=== PATIENT | female | born 1990 | race American Indian/Alaskan Native ===

== ENCOUNTER 2022-04-11 20:58 | Emergency (ER) | payer SELFPAY ==
[2022-04-11 21:11] VITALS: BP 137/73
[2022-04-11 21:55] LABS: Hematocrit 39.9 % (30.3-42.9); Hemoglobin 13.2 gm/dl (10.1-14.3); Mean Corpuscular HGB Conc 33 % (30-34); Mean Corpuscular Volume 98 fl (79-97); Platelet Count 293 K/mm3 (140-440); Red Blood Count 4.07 M/mm3 (3.65-5.03); Red Cell Distribution Width 13.6 % (13.2-15.2)
[2022-04-11] MEDS ORDERED: METOCLOPRAMIDE 10 MG/2 ML INJ IV ONE (22:01)
[2022-04-11] MEDS ORDERED: diphenhydrAMINE 50 MG/ML VIAL IV ONE (22:01)
[2022-04-11] MEDS ORDERED: MORPHINE 4 MG/1 ML INJ IV ONE (22:01)
[2022-04-11] MEDS ORDERED: FAMOTIDINE 20 MG/2 ML INJ IV ONE (22:01)
[2022-04-11 22:16] LABS: Alanine Aminotransferase 12 units/L (7-56); Albumin 4.8 g/dL (3.9-5); BUN/Creatinine Ratio 16; Blood Urea Nitrogen 13 mg/dL (7-17); Calcium 10.2 mg/dL (8.4-10.2); Hemolysis Index 42
[2022-04-11 22:40] LABS: Basophils % (Manual) 0 % (0.0-1.8); Eosinophils % (Manual) 0 % (0.0-4.3); Platelet Estimate Consistent w Auto; RBC Morphology Normal; Total Cells Counted 100
--- NOTE | 2022-04-12 00:14 | Cat Scan Report ---
CT ABDOMEN AND PELVIS WITH CONTRAST INDICATION: Pt complains of abdominal pain with nausea and vomiting CONTRAST: 100 cc Omnipaque 300 IV COMPARISON: None available. All CT scans at this location are performed using CT dose reduction for ALARA by means of automated e xposure control. FINDINGS: Lung bases show atelectatic changes. No pneumoperitoneum. Gallbladder and bile ducts normal . Liver with slight fatty infiltration but with moderate enlargement measuring 21.5 cm. No focal lesi ons obvious. Spleen not enlarged. No abdominal masses. No urinary obstructive changes. No inflammator y changes. No lymphadenopathy. Minimal nonspecific free fluid in the pelvis. No pelvic masses. Minima l follicular-type cysts in the ovaries. Much of the colon is difficult to evaluate due to lack of dis tention but no definite wall thickening or inflammation are seen. No evidence of bowel obstruction. A ppendix within normal limits. IMPRESSION: No acute abnormalities are seen Signer Name: Gopi Emanuel MD Signed: 04/12/2022 12:10 AM Workstation Name: [id number]
[2022-04-12 00:43] LABS: Bilirubin,Urine NEG (Negative); Blood,Urine NEG (Negative); Color,Urine Yellow (Yellow); Mucus,Urine FEW /HPF; Protein,Urine <15 mg/dL mg/dL (Negative); Urobilinogen,Urine < 2.0 mg/dL (<2.0)
--- NOTE | 2022-04-12 01:11 | Emergency Department Report ---
ED N/V/D HPI - General Chief complaint: Abdominal Pain Stated complaint: AB PAIN/VOMITTING Source: patient Mode of arrival: Ambulatory Limitations: No Limitations - History of Present Illness Initial comments: Patient is a 31-year-old -[place] female with no past medical history presents to the ED with complaint of acute onset persistent intermittent nausea and vomiting with epigastric pain for the last 5 hours after eating at a fast food restaurant. Patient states that she has had multiple nausea and vomiting episodes and that she has not been able to keep anything down. Patient also complains of worsening epigastric pain due to intractable vomiting episodes. Patient denies diarrhea, dysuria, urinary frequency and urgency, chest pain or shortness of breath, cough, sore throat, headache, fever, chills, vaginal bleeding or vaginal discharge, hematemesis or hematochezia. MD complaint: nausea, vomiting, abdominal pain -: hour(s) (5) Description of Vomiting: food contents, watery, bilious Associated Abdominal Pain: Yes (epigastric) Location: epigastric Radiation: none Severity: severe Pain Scale: 7 Quality: cramping, aching, sharp Consistency: intermittent Worsens with: eating, vomiting Context: possible food poisoning, sick contacts Associated Symptoms: denies other symptoms, loss of appetite, malaise, nausea/vomiting. denies: myalgias, chest pain, cough, diaphoresis, fever/chills, headaches, rash, dysuria, shortness of breath, syncope, weakness - Related Data Previous Rx's Medication Instructions Recorded Last Taken Type Dicyclomine [Bentyl] 20 mg PO Q6H PRN #30 tablet 04/12/22 Unknown Rx Famotidine [Pepcid] 20 mg PO BID #40 tablet 04/12/22 Unknown Rx Ondansetron [Zofran Odt] 4 mg PO Q8HR PRN #20 tab.rapdis 04/12/22 Unknown Rx Allergies Allergy/AdvReac Type Severity Reaction Status Date / Time No Known Allergies Allergy Verified 04/11/22 21:10 ED Review of Systems ROS: Stated complaint: AB PAIN/VOMITTING Other details as noted in HPI Constitutional: denies: chills, fever Eyes: denies: eye pain, eye discharge, vision change ENT: denies: ear pain, throat pain Respiratory: denies: cough, shortness of breath, wheezing Cardiovascular: denies: chest pain, palpitations Endocrine: no symptoms reported Gastrointestinal: abdominal pain, nausea, vomiting. denies: diarrhea Genitourinary: denies: urgency, dysuria, discharge Musculoskeletal: denies: back pain, joint swelling, arthralgia Skin: denies: rash, lesions Neurological: denies: headache, weakness, paresthesias Psychiatric: denies: anxiety, depression Hematological/Lymphatic: denies: easy bleeding, easy bruising ED Past Medical Hx - Past Medical History Previous Medical History?: No - Surgical History Past Surgical History?: No - Social History Smoking Status: Never Smoker Substance Use Type: None - Medications Home Medications: Home Medications Medication Instructions Recorded Confirmed Last Taken Type Dicyclomine [Bentyl] 20 mg PO Q6H PRN #30 tablet 04/12/22 Unknown Rx Famotidine [Pepcid] 20 mg PO BID #40 tablet 04/12/22 Unknown Rx Ondansetron [Zofran Odt] 4 mg PO Q8HR PRN #20 tab.rapdis 04/12/22 Unknown Rx ED Physical Exam - General Limitations: No Limitations General appearance: alert, in no apparent distress - Head Head exam: Present: atraumatic, normocephalic, normal inspection - Eye Eye exam: Present: normal appearance, PERRL, EOMI Pupils: Present: normal accommodation - ENT ENT exam: Present: normal exam, normal orophraynx, mucous membranes moist, TM's normal bilaterally, normal external ear exam - Neck Neck exam: Present: normal inspection, full ROM - Respiratory Respiratory exam: Present: normal lung sounds bilaterally. Absent: respiratory distress, wheezes, rales, chest wall tenderness, accessory muscle use, decreased breath sounds, prolonged expiratory - Cardiovascular Cardiovascular Exam: Present: normal rhythm, tachycardia, normal heart sounds. Absent: systolic murmur, diastolic murmur, rubs, gallop - GI/Abdominal GI/Abdominal exam: Present: soft, tenderness (Palpable epigastric tenderness), normal bowel sounds. Absent: guarding, rebound, hyperactive bowel sounds, hypoactive bowel sounds, organomegaly, mass - Extremities Exam Extremities exam: Present: normal inspection, full ROM, normal capillary refill - Back Exam Back exam: Present: normal inspection, full ROM. Absent: tenderness, CVA tenderness (R), CVA tenderness (L), muscle spasm, paraspinal tenderness, vertebral tenderness - Neurological Exam Neurological exam: Present: alert, oriented X3, CN II-XII intact, normal gait, reflexes normal - Psychiatric Psychiatric exam: Present: normal affect, normal mood - Skin Skin exam: Present: warm, dry, intact, normal color. Absent: rash ED Course Vital Signs 04/11/22 21:07 Temperature 98.2 F Pulse Rate 101 H Respiratory 18 Rate Blood Pressure 137/73 [Left] O2 Sat by Pulse 99 Oximetry ED Medical Decision Making - Lab Data Result diagrams: 04/11/22 21:40 04/11/22 21:40 - Radiology Data Radiology results: report reviewed, image reviewed [facility] [address] [place] [address] Cat Scan Report Signed Patient: CLIFTON ARVIZU MR#: [id number] : 1990 Acct:[id number] Age/Sex: 31 / F ADM Date: 04/11/22 Loc: ED Attending Dr: Ordering Physician: ADDIE MONTANA Date of Service: 04/11/22 Procedure(s): CT abdomen pelvis w con Accession Number(s): [id number] cc: ADDIE MONTANA CT ABDOMEN AND PELVIS WITH CONTRAST INDICATION: Pt complains of abdominal pain with nausea and vomiting CONTRAST: 100 cc Omnipaque 300 IV COMPARISON: None available. All CT scans at this location are performed using CT dose reduction for ALARA by means of automated exposure control. FINDINGS: Lung bases show atelectatic changes. No pneumoperitoneum. Gallbladder and bile ducts normal. Liver with slight fatty infiltration but with moderate enlargement measu ring 21.5 cm. No focal lesions obvious. Spleen not enlarged. No abdominal masses. No urinary obstructive changes. No inflammatory changes. No lymphadenopathy. Minimal nonspecific free fluid in the pelvis. No pelvic masses. Minimal follicular-type cysts in the ovaries. Much of the colon is difficult to evaluate due to lack of distention but no definite wall thickening or inflammation are seen. No evidence of bowel obstruction. Appendix within normal limits. IMPRESSION: No acute abnormalities are seen Signer Name: Gopi Emanuel MD Signed: 04/12/2022 12:10 AM Workstation Name: [id number] Transcribed By: DAYTON Dictated By: Gopi Emanuel MD Electronically Authenticated By: Gopi Emanuel MD Signed Date/Time: 04/12/22 0010 DD/ 0006 TD/TT: - Medical Decision Making This is a 31-year-old -[place] female with no past medical history presents to the ED with complaint of acute onset persistent intermittent nausea and vomiting with epigastric pain for the last 5 hours after eating at a fast food restaurant. Patient states that she has had multiple nausea and vomiting episodes and that she has not been able to keep anything down. Patient also complains of worsening epigastric pain due to intractable vomiting episodes. In the ED, patient is alert and oriented x3 and is not in any distress. Patient however tachycardic and afebrile in triage. Patient was treated for pain in the ED and also treated with antiemetics and antacids as well as normal saline 1 L IV bolus x1. Lab test results were reviewed and are all nonactionable. Abdomen pelvis CT scan with IV contrast showed no acute abnormalities. On reevaluation, patient nausea and vomiting and pain resolved with medications. Patient will discharge home on medications and advised to maintain a clear liquid diet for 12 to 24 hours, patient is advised to take medications and follow-up with a primary care physician in 5 to 7 days for reevaluation or return to the ED immediately if symptoms get worse. - Differential Diagnosis Viral gastroenteritis; GERD; dehydration; UTI; . Critical care attestation.: If time is entered above; I have spent that time in minutes in the direct care of this critically ill patient, excluding procedure time. ED Disposition Clinical Impression: Nausea and vomiting in adult patient, Viral gastroenteritis GERD (gastroesophageal reflux disease) Qualifiers: Esophagitis presence: esophagitis presence not specified Qualified Code(s): K21.9 - Gastro-esophageal reflux disease without esophagitis Abdominal pain Qualifiers: Abdominal location: epigastric Qualified Code(s): R10.13 - Epigastric pain Disposition: 01 HOME / SELF CARE / HOMELESS Is pt being admited?: No Does the pt Need Aspirin: No Condition: Stable Instructions: Abdominal Pain (ED), Viral Gastroenteritis, Adult, [id number], Abdominal Pain, Adult, [id number], Nausea and Vomiting, Adult, [id number], Gastroesophageal Reflux Disease, Adult, [id number] Additional Instructions: All lab test results were reviewed and are all nonactionable. Abdomen pelvis CT scan with IV contrast showed no acute abnormalities. Your symptoms are likely due to viral gastroenteritis from food poisoning. Therefore maintain a clear liquid diet for 12 to 24 hours, take medications as needed for nausea and vomiting, antacids and for pain. Follow-up with your primary care physician in 5 to 7 days for reevaluation or return to the ED immediately if symptoms get worse. Prescriptions: Dicyclomine [Bentyl] 20 mg PO Q6H PRN #30 tablet PRN Reason: abdominal pain Famotidine [Pepcid] 20 mg PO BID #40 tablet Ondansetron [Zofran Odt] 4 mg PO Q8HR PRN #20 tab.rapdis PRN Reason: Nausea Referrals: SABRINA WALL MD [Primary Care Provider] - 3-5 Days Forms: Work/School Release Form(ED) Time of Disposition: 01:12 Print Language: PAKISTANI
[2022-04-12] MEDS ORDERED: ONDANSETRON 4 MG ODT TAB PO ONE (01:43)
== END 2022-04-12 02:05 | disposition home or self-care (01) ==
LOC: ED 20:58
DX: A08.4 Viral intestinal infection, unspecified (principal); K21.9 Gastro-esophageal reflux disease without esophagitis; Z79.899 Other long term (current) drug therapy
CPT/HCPCS: 36415; 74177; 80053; 81001; 83690; 84703; 85007; 85025; 96374; 96375; 99284; J1200; J2270; J2765; J3490; Q9967; Q0162